=== PATIENT | male | born 1960 | race Two or more races ===

== ENCOUNTER 2018-03-10 03:47 | Emergency (ER) | payer SELFPAY ==
[~2018-03-10] VITALS: Ht 177.8 cm; Wt 88.5 kg
--- NOTE | 2018-03-10 03:50 | NUR ---
PT BIBRA, PT REQUEST TO SIT IN WR AT THIS TIME. ENCOURAGED PT TO BE PLACED IN ER BED, PT REFUSED. RISK AND BENEFITS EXPLAINED X3.
--- NOTE | 2018-03-10 04:25 | NUR ---
CALLED PT NAME X3. PT ASLEEP IN WR. PT AROUSABLE. REFUSED TO BE SEEN AT THIS TIME. RISK AND BENEFITS EXPLAINED X3. PT STATES "I JUST WANT TO SLEEP RIGHT NOW"
--- NOTE | 2018-03-10 05:20 | NUR ---
CALLED PT NAME X3. PT ASLEEP IN WR. PT AROUSABLE. REFUSED TO BE SEEN AT THIS TIME. RISK AND BENEFITS EXPLAINED X3.
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
--- NOTE | 2018-03-10 06:39 | NUR ---
TAKEN TO RADIOLOGY FOR CT HEAD ,X-RAY OF PELVIS
--- NOTE | 2018-03-10 07:34 | NUR ---
CT HEAD (-),XRAY OF PELVIS (-).PATIENT FOR DISCHARGE.REPORT GIVEN TO MARISSA BEAN
--- NOTE | 2018-03-10 07:45 | NUR ---
DPatient discharged to home in stable condition. Written and verbal after care instructions given. Patient verbalizes understanding of instruction. Ambulatory with a steady gait
[2018-03-10 07:48] VITALS: BP 117/70
== END 2018-03-10 07:49 | disposition home or self-care (01) ==
LOC: ER 03:52
DX: S70.02XA Contusion of left hip, initial encounter (principal); S00.83XA Contusion of other part of head, initial encounter; Z60.2 Problems related to living alone; W18.39XA Other fall on same level, initial encounter; Y93.89 Activity, other specified; Y92.89 Other specified places as the place of occurrence of the external cause; Y99.8 Other external cause status
CPT/HCPCS: 70450-TC; 72170-TC; A4606; Z7610

== ENCOUNTER 2020-02-27 14:40 | Emergency (ER) | payer MEDICAID ==
[~2020-02-27] VITALS: Ht 165.1 cm; Wt 77.1 kg
[2020-02-27 14:47] VITALS: BP 142/98
== END 2020-02-27 15:08 | disposition home or self-care (01) ==
LOC: ER 14:40
DX: L03.011 Cellulitis of right finger (principal); L08.89 Other specified local infections of the skin and subcutaneous tissue; Z60.2 Problems related to living alone

== ENCOUNTER 2021-03-27 14:41 | Emergency (ER) | payer MEDICAID ==
[~2021-03-27] VITALS: Ht 170.2 cm; Wt 77.1 kg
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
[2021-03-27] MEDS: CYCLOBENZAPRINE 10 MG TABLET PO ONE (15:30)
[2021-03-27] MEDS: KETOROLAC TROMETHAMINE INJ 60 MG/2 ML VIAL IM ONE (15:30)
[2021-03-27] MEDS ORDERED: KETOROLAC TROMETHAMINE INJ 30 MG/ML VIAL ONE (15:40)
[2021-03-27] MEDS ORDERED: CYCLOBENZAPRINE 10 MG TABLET ONE (15:40)
--- NOTE | 2021-03-27 17:24 | NUR ---
ASSISTANT PROGRAM DIRECTOR AT BEDSIDE
[2021-03-27] MEDS ORDERED: OXYC-128 PO (18:27)
[2021-03-27] MEDS ORDERED: IBUP-1957 PO (18:27)
--- NOTE | 2021-03-27 19:21 | NUR ---
REPORT GIVEN TO NURSE DAQUAN FOR HOLLY
--- NOTE | 2021-03-27 19:39 | NUR ---
Patient discharged to home in stable condition. Written and verbal after care instructions given. Patient verbalizes understanding of instruction.
[2021-03-27 20:26] VITALS: BP 137/72
== END 2021-03-27 19:40 | disposition home or self-care (01) ==
LOC: ER 14:48
DX: S22.31XA Fracture of one rib, right side, initial encounter for closed fracture (principal); X58.XXXA Exposure to other specified factors, initial encounter; Y93.89 Activity, other specified; Y92.89 Other specified places as the place of occurrence of the external cause; Y99.8 Other external cause status
CPT/HCPCS: 71100; 96372; 99283; J1885